=== PATIENT | male | born 1995 | race Caucasian/White ===

== ENCOUNTER → 2016-07-28 | Outpatient (CLI) | payer OTHER ==
[~2016-07-28] MED LIST: ACET325T96 PO; CETI10TA84 PO; FLUT0.15 NAE; OXYC-57 PO
--- NOTE | 2016-07-28 20:28 | DIAGNOSTIC IMAGING REPORT ---
CHEST 2 VIEWS ROUTINE HISTORY: Left-sided chest pain. COMPARISON: Chest 02/25/2015. FINDINGS: Interval development of a lceke-by-zkdnpekz left pneumothorax with a maximal pleural gap of 4 cm. No focal lung consolidations. No mediastinal shift. The heart is normal in size. Suture material within the right lung apex. No right-sided pneumothorax. No pleural effusions. IMPRESSION: Small to moderate left apical pneumothorax with a maximal pleural gap of 4 cm. These findings were called to Dr. Che at 8:42 PM on 07/28/2016. Electronically signed by: John La M.D. 07/28/2016 8:41 PM Dictated Date/Time: 07/28/2016 8:25 PM
== END | disposition home or self-care (01) ==
LOC: C.RAD 20:06
PROVIDERS: ATTEND Internal Medicine Pulmonary Disease
DX: J93.9 Pneumothorax, unspecified (principal)

== ENCOUNTER → 2016-07-29 | Outpatient (CLI) | payer OTHER ==
[~2016-07-29] MED LIST changes: +OPTIRAY 320 IV PRN
--- NOTE | 2016-07-29 13:55 | DIAGNOSTIC IMAGING REPORT ---
CT OF THE CHEST WITH IV CONTRAST CLINICAL HISTORY: Pneumothorax. COMPARISON STUDY: Chest CT May 29, 2014 and chest radiograph July 28, 2016. TECHNIQUE: Following IV administration of 94 mL of Optiray-320, helical axial images of the chest were obtained. Images were viewed in the axial, sagittal and coronal planes. IV contrast was administered without complication. CT DOSE: 259.76 mGycm FINDINGS: A small left pneumothorax is noted. This is likely similar to exam of July 28, 2016. There are postsurgical findings within the right lung apex. There is a suspected 5 mm bleb within the left lung apex shown on axial image 46 of 376. This could account for the pneumothorax. There is no consolidation. The size of the heart is normal. There is no pericardial effusion. Pleural hyperdensities within the right hemithorax could be related to prior pleurodesis. Bony thorax and upper abdomen are unremarkable. IMPRESSION: 1. Small left pneumothorax, similar to chest radiograph of July 28, 2016. Suspected tiny left apical bleb which could account for the spontaneous left pneumothorax. 2. Post surgical findings within the right hemithorax. Electronically signed by: Michael Vasquez M.D. 07/29/2016 1:54 PM Dictated Date/Time: 07/29/2016 1:45 PM
== END | disposition home or self-care (01) ==
LOC: C.CTS 12:59
PROVIDERS: ATTEND Internal Medicine Pulmonary Disease
DX: J93.9 Pneumothorax, unspecified (principal)

== ENCOUNTER → 2016-08-02 | Outpatient (CLI) | payer OTHER ==
[~2016-08-02] MED LIST changes: -OPTIRAY 320 IV PRN
--- NOTE | 2016-08-02 08:19 | DIAGNOSTIC IMAGING REPORT ---
CHEST 2 VIEWS ROUTINE CLINICAL HISTORY: Pneumothorax. Right-sided chest pain. COMPARISON STUDY: 07/28/2016 FINDINGS: Postsurgical changes are present within the right lung apex. There is elevation of the minor fissure. There is interval decrease the size of a left apical pneumothorax which has a pleural separation of 13 mm. No right-sided pneumothorax is visualized. There is no focal pulmonary consolidation. No pleural effusions are visualized.[ IMPRESSION: 1. Decreasing left apical pneumothorax with a pleural separation of 13 mm. 2. Postsurgical changes involve the right hemithorax Electronically signed by: Colby Wagoner M.D. 08/02/2016 8:18 AM Dictated Date/Time: 08/02/2016 8:16 AM
== END | disposition home or self-care (01) ==
LOC: C.RAD 07:40
PROVIDERS: ATTEND Internal Medicine Pulmonary Disease
DX: J93.9 Pneumothorax, unspecified (principal)

== ENCOUNTER → 2016-08-18 | Outpatient (CLI) | payer OTHER ==
[~2016-08-18] MED LIST changes: -ACET325T96 PO
[2016-08-18 11:55] LABS: BASO % 0.5 %; BASO ABS # 0.04 K/uL (0-0.2); COMPLETE YES; EOS % 4.6 %; HEMATOCRIT 43.7 % (42-52); IG% 0.3 %; LYMPH % 31.9 %; LYMPH ABS # 2.41 K/uL (1.2-3.4); MEAN CELL VOLUME 87.4 fL (80-100); MEAN CORPUSCULAR HEMOGLOBIN 30.4 pg (25-34); MEAN CORPUSCULAR HGB CONC 34.8 g/dl (32-36); MEAN PLATELET VOLUME 10.3 fL (7.4-10.4); MONO % 6.7 %; PLATELET COUNT 195 K/uL (130-400); WHITE BLOOD COUNT 7.56 K/uL (4.8-10.8)
[2016-08-18 12:21] LABS: BLOOD UREA NITROGEN 15 mg/dl (7-18); BUN/CREATININE RATIO 17.6 (10-20); CARBON DIOXIDE 31 mmol/L (21-32); CHLORIDE 107 mmol/L (98-107); CREATININE 0.86 mg/dl (0.60-1.40); GLUCOSE 73 mg/dl (70-99); POTASSIUM 3.9 mmol/L (3.5-5.1); SODIUM 143 mmol/L (136-145)
[2016-08-18 12:32] LABS: CALCIUM 9.5 mg/dl (8.5-10.1)
== END | disposition home or self-care (01) ==
LOC: C.LAB1850 10:03
PROVIDERS: ATTEND Surgery
DX: Z01.812 Encounter for preprocedural laboratory examination (principal); J93.9 Pneumothorax, unspecified

== ENCOUNTER 2016-08-26 05:18 | Observation (INO) | payer OTHER ==
[2016-08-26] VITALS (9 sets, daily range): BP systolic 108–128; BP diastolic 65–76; PULSE 70–105; TEMP 36.4–37.3; O2SAT 94–100; Ht 182.9 cm; Wt 67.3 kg
[~2016-08-26] VITALS: Ht 182.9 cm; Wt 67.3 kg
[~2016-08-26 05:18] MED LIST changes: -OXYC-57 PO
[2016-08-26] MEDS ORDERED: LACTATED RINGER'S 1000ML 1,000 ML IV SCH (06:00)
[2016-08-26] MEDS ORDERED: TALC 6 GM/PKT EXT ONE (06:34)
--- NOTE | 2016-08-26 06:37 | History & Physical Bridge Note ---
H&P Re-Evaluation Bridge Note: I have examined the patient, reviewed the History & Physical and in the interval since the performance of the History & Physical I have noted the following changes of clinical significance: No changes noted pt marked family will be here
[2016-08-26] MEDS ORDERED: FENTANYL CITRATE INJ 50 MCG/1 ML 2 ML VIAL ONE ×2 (06:38→08:57)
[2016-08-26] MEDS ORDERED: GLYCOPYRROLATE INJ 0.2 MG/ML VIAL ONE (06:38)
[2016-08-26] MEDS ORDERED: ONDANSETRON INJ 2 MG/ML 2 ML VIAL ONE (06:38)
[2016-08-26] MEDS ORDERED: MIDAZOLAM HCL 1 MG/ML 2ML VIAL ONE ×2 (06:38→06:53)
[2016-08-26] MEDS ORDERED: PROPOFOL IV EMULSION 10 MG/ML 20 ML VIAL IV ONE (06:38)
[2016-08-26] MEDS ORDERED: DEXAMETHASONE SOD INJ 4 MG/ML VIAL ONE (06:38)
[2016-08-26] MEDS ORDERED: ROCURONIUM BROMIDE 10 MG/ML 5 ML VIAL ONE (06:38)
[2016-08-26] MEDS ORDERED: NEOSTIGMINE METHYLSULFATE 5 MG/5 ML SYR ONE (06:38)
[2016-08-26] MEDS ORDERED: LIDOCAINE HCL 2% 2 ML VIAL (20MG/ML) ONE ×2 (06:38→09:06)
[2016-08-26] MEDS ORDERED: CEFAZOLIN SOD 1 GM VIAL ONE (07:39)
[2016-08-26] MEDS ORDERED: BUPIVACAINE 0.5 % 5 MG/1 ML MPF 30ML VIAL ONE (07:54)
--- NOTE | 2016-08-26 08:38 | [facility] Post Operative Brief Note ---
Immediate Operative Summary Operative Date August 26, 2016. Pre-Operative Diagnosis Left pneumothorax Post-Operative Diagnosis Same Procedure(s) Performed Left Video-assisted Thoracoscopy; ; Wedge Resection of Apical Blebs with Mechanical Pleurodesis Surgeon Dr Mills Physicians Assistant Surgeon(s) Luis Fernando Weber PA-C Estimated Blood Loss 10ML Findings localized pale tissue and fibrosis consistent with apical blebs Specimens A. Wedge resection left upper lobe Culture C/S cathed urine sent out at 0747 Drains 28 chest tube
[2016-08-26] MEDS ORDERED: OXYC-57 PO (08:41)
--- NOTE | 2016-08-26 08:42 | Discharge Instructions ---
Discharge Instructions Date of Service August 26, 2016. Admission Reason for Admission: Pneumothorax Discharge Discharge Diagnosis / Problem: left VATS, bleb resction, pleurodesis Discharge Goals Goal(s): Improve disease control Activity Recommendations Activity Limitations: as noted below Shower/Bathe: tomorrow Driving or Machine Use: resume 3 days after discharge (if not taking Percocet) . Instructions / Follow-Up Instructions / Follow-Up Dr. Mills in 1 week, call [phone] for any questions or if you need to schedule an appt Go to the ER if you become short of breath Current Hospital Diet Patient's current hospital diet: Regular Diet Discharge Diet Recommended Diet: Regular Diet Procedures Procedures Performed: Left Video-assisted Thoracoscopy; ; Wedge Resection of Apical Blebs with Mechanical Pleurodesis Pending Studies Studies pending at discharge: no Medical Emergencies . Who to Call and When: Medical Emergencies: If at any time you feel your situation is an emergency, please call 911 immediately. . Non-Emergent Contact Non-Emergency issues call your: Surgeon Call Non-Emergent contact if: you have a fever, temperature is above 101.5, your pain is not controlled, wound has increased drainage, wound has increased redness . "Provider Documentation" section prepared by Luis Fernando Weber. . VTE Core Measure Inpt VTE Proph given/why not?: SCD's
[2016-08-26] MEDS ORDERED: ONDANSETRON INJ 2 MG/ML 2 ML VIAL IV PRN ×2 (08:45→09:00)
[2016-08-26] MEDS ORDERED: PHENYLEPHRINE 100MCG/ML 5ML SYR ONE (08:55)
[2016-08-26] MEDS ORDERED: MEPERIDINE HCL 25 MG/ML CARP IV PRN ×2 (09:00→09:15)
[2016-08-26] MEDS ORDERED: ATROPINE SULFATE 0.1 MG/ML 5ML SYR IV PRN (09:00)
[2016-08-26] MEDS ORDERED: FENTANYL CITRATE INJ 50 MCG/1 ML 2 ML VIAL IV PRN (09:00)
[2016-08-26] MEDS ORDERED: EpHEDrine SULFATE INJ 50 MG/ML AMP IV PRN ×2 (09:00→09:15)
[2016-08-26] MEDS ORDERED: LABETALOL HCL IV 5 MG/ML 20ML IV PRN (09:00)
[2016-08-26] MEDS ORDERED: HYDROmorphone INJ 1 MG/ML SYR IV PRN ×2 (09:00→09:15)
[2016-08-26] MEDS ORDERED: SODIUM CHLORIDE 0.9% INJ 10 ML VIAL ONE (09:06)
[2016-08-26] MEDS ORDERED: SODIUM CHLORIDE 0.9% 1000ML 1,000 ML IV PRN (09:11)
[2016-08-26] MEDS ORDERED: LACTATED RINGER'S 1000ML 500 ML IV PRN (09:11)
--- NOTE | 2016-08-26 09:12 | OPERATIVE REPORT ---
DATE OF OPERATION: 08/26/2016 PREOPERATIVE DIAGNOSES: Left recurrent spontaneous pneumothorax, apical blebs. POSTOPERATIVE DIAGNOSES: Same. PROCEDURES: Wedge resection, left upper lobe via left VATS, mechanical pleurodesis. SURGEON: Dr. Mills. PERINATAL SOCIAL WORKER: Phillip Weber PA-C. SUMMARY: The patient was brought into the operating room theater and epidural anesthesia had been placed at the patient's request. The double lumen endotracheal tube was positioned. The left chest area was prepped after we rotated the patient to the right, roll placed underneath the shoulders and properly padded. We entered the chest cavity after the left lung had been deflated through a small incision at the tip of the scapula, sufficient enough to use preemptive local analgesia in the area. Once we entered the subcutaneous tissue, we were able to enter the intercostal space with a hemostat followed by a 5 mm trocar followed by the scope. Point of entry inspected and no injury identified. The lung was partially deflated, with time it would be completely deflated. At this point, we then placed under direct visualization in the anterior axillary line approximately the fourth intercostal space, another 5 mm trocar with preemptive local analgesic. Then we placed an 11 mm anterior axillary line trocar at approximately the ninth intercostal space supradiaphragmatically under direct visualization. At this point, we placed a camera in the larger port site and elevated the lung which appeared pristine except in the apical area there was an area of pale tissue with some fibrosis consistent probably with the localized area of blebs. Using multiple applications of the Endo JUAQUIN the purple we were able then to resect the apical area. Hemostasis was satisfactory. Having accomplished this, we used the Bovie pad scraper, cut it appropriately and mechanically abraded nursing home up the chest to the apical area. Once this had been completed, we placed the chest tube appropriately in the apical area, making sure we were not into the thoracic inlet. We then placed the scope in the fourth intercostal 5 mm trocar site to visualize the entry site at the initial trocar site that was free of any bleeding. At this point, we also visualized the upper segment of the lower lobe and there was no evidence of any bleb formation in that area. The chest tube was attached to skin edges with 2-0 silk suture and 4-0 Monocryl for the two 5 mm trocar sites and Steri-Strips applied. The procedure was tolerated well by the patient and was taken to recovery in good condition. ADDENDUM: Prior to removing the scope, we had anesthesia inflate the lung and there was no obvious air leak and both lobes reexpanded. I attest to the content of the Intraoperative Record and any orders documented therein. Any exceptio ns are noted below.
[2016-08-26] MEDS ORDERED: NALBUPHINE HCL INJ 10 MG/ML AMP IV PRN (09:15)
[2016-08-26] MEDS ORDERED: KETOROLAC TROMETHAMINE 30 MG/ML VIAL IV. PRN (09:15)
[2016-08-26] MEDS ORDERED: NALOXONE HCL INJ 0.4 MG/1 ML VIAL/CARP IV PRN (09:15)
[2016-08-26] MEDS ORDERED: DiphenhydrAMINE HCL 50 MG/ML VIAL IV PRN (09:15)
[2016-08-26] MEDS ORDERED: FENTANYL 2.5MCG/ML BUPIV 0.0625% 100ML BAG ONE (09:22)
--- NOTE | 2016-08-26 09:41 | DIAGNOSTIC IMAGING REPORT ---
CHEST ONE VIEW PORTABLE HISTORY: left VATS, bleb resection COMPARISON: Chest 08/26/2016. FINDINGS: Left-sided chest tube terminates in the left lung apex. There is a small left apical pneumothorax with a pleural gap of 1.5 cm. Suture material within the lung apices. An epidural catheter is noted. The heart is normal in size. No pleural effusions. IMPRESSION: Small left apical pneumothorax. Left-sided chest tube terminates in the left lung apex. Electronically signed by: John La M.D. 08/26/2016 9:40 AM Dictated Date/Time: 08/26/2016 9:31 AM
[2016-08-26] MEDS ORDERED: IV FLUIDS COMPLETED PRN (10:15)
--- NOTE | 2016-08-26 10:20 | Anesthesiology Progress Note ---
Anesthesia Post Op Note Date & Time August 26, 2016 at 10:17 Vital Signs Pain Intensity: 2 Vital Signs Past 12 Hours Date Time Temp Pulse Resp B/P Pulse Ox O2 Delivery O2 Flow Rate FiO2 08/26/16 10:07 93 15 95 08/26/16 10:07 77 15 08/26/16 10:07 93 15 95 08/26/16 10:07 77 15 08/26/16 10:06 121/70 08/26/16 10:06 121/70 08/26/16 10:02 65 19 100 08/26/16 10:02 65 19 08/26/16 10:02 65 19 08/26/16 10:02 65 19 100 08/26/16 10:01 117/81 08/26/16 10:01 117/81 08/26/16 09:57 83 15 99 08/26/16 09:57 82 15 08/26/16 09:57 83 15 99 08/26/16 09:57 82 15 08/26/16 09:56 124/82 08/26/16 09:56 124/82 08/26/16 09:52 79 17 100 08/26/16 09:52 80 17 08/26/16 09:52 79 17 100 08/26/16 09:52 80 17 08/26/16 09:51 129/80 08/26/16 09:51 129/80 08/26/16 09:47 88 28 08/26/16 09:47 88 28 08/26/16 09:47 89 28 98 08/26/16 09:47 89 28 98 08/26/16 09:46 127/76 08/26/16 09:46 127/76 08/26/16 09:42 74 15 100 08/26/16 09:42 76 15 08/26/16 09:42 74 15 100 08/26/16 09:42 76 15 08/26/16 09:41 130/69 08/26/16 09:38 67 16 100 08/26/16 09:38 64 16 08/26/16 09:36 116/65 08/26/16 09:36 36.1 08/26/16 09:33 90 20 08/26/16 09:33 87 20 100 08/26/16 09:31 117/71 08/26/16 09:28 71 15 08/26/16 09:28 66 15 100 08/26/16 09:27 65 18 100 08/26/16 09:27 67 18 08/26/16 09:26 134/72 08/26/16 09:22 81 15 100 08/26/16 09:22 80 15 08/26/16 09:21 132/68 08/26/16 09:18 92 18 100 08/26/16 09:18 92 18 08/26/16 09:16 129/80 08/26/16 09:13 90 19 100 08/26/16 09:13 91 19 08/26/16 09:12 64 13 100 08/26/16 09:12 62 13 08/26/16 09:11 132/80 08/26/16 09:07 65 16 08/26/16 09:07 61 16 100 08/26/16 09:06 133/76 08/26/16 09:02 69 16 08/26/16 09:02 67 16 100 08/26/16 09:01 132/74 08/26/16 08:57 78 19 08/26/16 08:57 77 19 100 08/26/16 08:56 122/60 08/26/16 08:52 89 15 100 08/26/16 08:52 91 15 08/26/16 08:51 116/64 08/26/16 08:47 98 21 100 08/26/16 08:47 97 21 08/26/16 08:46 103/60 08/26/16 08:43 124/73 08/26/16 08:42 90 100 08/26/16 08:42 90 08/26/16 08:42 36.1 93 16 124/73 100 Mask 10 08/26/16 05:35 37 77 18 125/76 100 Room Air Notes Mental Status: alert / awake / arousable, participated in evaluation Pt Amnestic to Procedure: Yes Nausea / Vomiting: adequately controlled Pain: adequately controlled Airway Patency, RR, SpO2: stable & adequate BP & HR: stable & adequate Hydration State: stable & adequate Anesthetic Complications: no major complications apparent Pt had left VATS under GA without problems. Complained of pain on arrival in PACU; lidocaine 1% 10cc given to thoracic epidural in divided doses with relief.
[2016-08-26] MEDS: LACTATED RINGER'S 1000ML 1,000 ML IV SCH ×2 (11:23→21:06)
[2016-08-26] MEDS: FENTANYL 2.5MCG/ML BUPIV 0.0625% 100ML BAG EPI PRN ×3 (15:13→22:55)
[2016-08-26] MEDS: NO NARCOTICS OR SEDATIVES SCH ×2 (16:00→23:20)
[2016-08-27 07:16] VITALS: BP 118/72; PULSE 80; TEMP 36.9; O2SAT 96
[2016-08-27] MEDS: FENTANYL 2.5MCG/ML BUPIV 0.0625% 100ML BAG EPI PRN (07:18)
--- NOTE | 2016-08-27 07:37 | SURGERY PROGRESS NOTE ---
DATE: 08/27/2016 DATE: 08/27/2016. Luther is 1st postoperative day status left VATS bleb resection and mechanical pleurodesis. He is alert, coherent and in no distress. He is comfortable with the epidural. Intraoperative findings were discussed with the patient. He has no forced expiratory leak. The chest tube was placed on suction. At this point we will discontinue epidural, discontinue the Ames, discontinue oxygen, increase activity. Will check the chest x-ray from this morning, but I suspect he will be able to go home later today if he is comfortable. ADDENDUM: His last vitals showed a temperature of 37.3, pulse 105, respirations 16, blood pressure 128/65, O2 sats 95 on 2 liters. I\T\O, he had 550 out. Chest tube drainage was minimal. MTDD
[2016-08-27] MEDS: NO NARCOTICS OR SEDATIVES SCH (08:00)
[2016-08-27 08:02] LABS: BASO % 0.1 %; BASO ABS # 0.01 K/uL (0-0.2); COMPLETE YES; EOS % 0.1 %; HEMATOCRIT 38.4 % (42-52); IG% 0.2 %; LYMPH % 15.6 %; LYMPH ABS # 2.28 K/uL (1.2-3.4); MEAN CELL VOLUME 87.1 fL (80-100); MEAN CORPUSCULAR HEMOGLOBIN 30.6 pg (25-34); MEAN CORPUSCULAR HGB CONC 35.2 g/dl (32-36); MEAN PLATELET VOLUME 9.8 fL (7.4-10.4); PLATELET COUNT 185 K/uL (130-400); RED BLOOD COUNT 4.41 M/uL (4.7-6.1); WHITE BLOOD COUNT 14.65 K/uL (4.8-10.8)
--- NOTE | 2016-08-27 08:23 | Anesthesiology Progress Note ---
Anesthesia Post Op Note Date & Time August 27, 2016 at 08:22 Vital Signs Pain Intensity: 0.0 Vital Signs Past 12 Hours Date Time Temp Pulse Resp B/P Pulse Ox O2 Delivery O2 Flow Rate FiO2 08/27/16 07:16 36.9 80 16 118/72 96 Nasal Cannula 2.0 08/26/16 23:20 Nasal Cannula 2.0 08/26/16 23:20 37.3 105 16 128/65 95 Nasal Cannula 2.0 Notes Mental Status: alert / awake / arousable, participated in evaluation Pt Amnestic to Procedure: Yes Nausea / Vomiting: adequately controlled Pain: adequately controlled Airway Patency, RR, SpO2: stable & adequate BP & HR: stable & adequate Hydration State: stable & adequate Neuraxial Anesthesia: was administered, sensory block resolved Anesthetic Complications: no major complications apparent
[2016-08-27 08:33] LABS: CREATININE 0.93 mg/dl (0.60-1.40); POTASSIUM 3.8 mmol/L (3.5-5.1)
[2016-08-27 08:53] LABS: CALCIUM 8.6 mg/dl (8.5-10.1)
--- NOTE | 2016-08-27 08:55 | DIAGNOSTIC IMAGING REPORT ---
CHEST ONE VIEW PORTABLE CLINICAL HISTORY: left VATS, bleb resection postoperative resection COMPARISON STUDY: 08/26/2016 FINDINGS: Left-sided chest tube unchanged in position. Mild increase in volume of a left apical pneumothorax. Maximum pleural separation has increased from 1.5 to 3.1 cm. Right lung is clear. An epidural catheter is present. IMPRESSION: Mild increase of a small left apical pneumothorax. Maximum pleural separation has increased to 3.1 cm. Electronically signed by: Yaya Recio M.D. 08/27/2016 8:54 AM Dictated Date/Time: 08/27/2016 8:53 AM
[2016-08-27] MEDS: OXYCODONE/ACETAMINOPHEN 5-325 TAB PO PRN ×2 (09:57→11:43)
--- NOTE | 2016-08-27 11:18 | Anesthesia Procedure Note ---
Anesthesia Epidural Removal Nt Date & Time August 27, 2016 at 11:18 Vital Signs Pain Intensity: 4.0 Vital Signs Past 12 Hours Date Time Temp Pulse Resp B/P Pulse Ox O2 Delivery O2 Flow Rate FiO2 08/27/16 07:25 Room Air 08/27/16 07:16 36.9 80 16 118/72 96 Nasal Cannula 2.0 08/26/16 23:20 Nasal Cannula 2.0 08/26/16 23:20 37.3 105 16 128/65 95 Nasal Cannula 2.0 Notes Mental Status: alert / awake / arousable, participated in evaluation Nausea / Vomiting: adequately controlled Pain: adequately controlled Airway Patency, RR, SpO2: stable & adequate BP & HR: stable & adequate Hydration State: stable & adequate Neuraxial Anesthesia: was administered, sensory block is resolving Anesthetic Complications: no major complications apparent, pt satisfied with anesthetic care Epidural: removed without complications, with tip intact
[2016-08-27] MEDS ORDERED: OXYCODONE/ACETAMINOPHEN 5-325 TAB PO PRN (11:30)
[2016-08-27] MEDS ORDERED: NURSING VERBAL MED ORDER ONE (11:45)
[2016-08-27 12:01] VITALS: BP 120/68; PULSE 80; TEMP 36.7; O2SAT 97
--- NOTE | 2016-08-27 14:17 | Progress Note ---
Progress Note Date of Service August 27, 2016. Progress Note chest tube drainage minimal, no air leak CXR with apical space at line of resection, some increase expected since taken off suction prior to XR chest tube was removed tolerating po analgesics ok for d/c home if not SOB and after observation for removal of epidural
[2016-08-27 14:38] VITALS: BP 120/68; PULSE 80; TEMP 36.7; O2SAT 97
[2016-08-27 15:21] VITALS: BP 99/61; PULSE 104; TEMP 36.8; O2SAT 97
--- NOTE | 2016-08-28 06:01 | DISCHARGE SUMMARY ---
PRIMARY DISCHARGE DIAGNOSES: Left recurrent spontaneous pneumothorax and apical blebs. PROCEDURE PERFORMED: Left VATS with wedge resection of left upper lobe and mechanical pleurodesis. HOSPITAL COURSE: The patient is a 20-year-old male with recurrent left pneumothoraces, now admitted through same day and taken to the operating room for left VATS, bleb resection and pleurodesis. The procedure was well tolerated. An epidural had been placed for postoperative analgesia. He was transferred to the surgical floor and did well overnight. Ames catheter and epidural were discontinued on postoperative day 1. Chest x-ray showed a small apical space problem at the line of resection. He did not have an air leak. His pain was managed with oral analgesics in the afternoon of postoperative day #1. The chest tube was removed and occlusive dressing was applied. There has been minimal chest tube drainage. After being observed once the epidural was removed, he was stable for discharge home in the evening of postoperative day 1. DISCHARGE INSTRUCTIONS: Discharge home. Follow up with Dr. Mills in 1 week. DISCHARGE MEDICATIONS: Percocet 1-2 tablets every 4 hours as needed. Resume home Zyrtec 10 mg as needed and Flonase nasal spray as needed daily.
== END 2016-08-27 17:15 | disposition home or self-care (01) ==
LOC: ENRESERVTM → ENRESERVDT → C.ACU 05:18 → C.MSN 08:38
PROVIDERS: ADMIT Surgery; ATTEND Surgery
DX: J93.83 Other pneumothorax (principal); R23.8 Other skin changes

== ENCOUNTER → 2017-04-08 | Outpatient (CLI) | payer OTHER ==
--- NOTE | 2017-04-08 13:55 | DIAGNOSTIC IMAGING REPORT ---
CHEST 2 VIEWS ROUTINE HISTORY: 21 years-old Male R07.89 Chest [id number] History of [id number] follow-up study in a patient with history of prior pneumothorax. Acute chest discomfort. COMPARISON: Chest radiograph 08/27/2016 TECHNIQUE: PA and lateral views of the chest FINDINGS: Cardiomediastinal and hilar silhouettes are within normal limits. Surgical suture material projects over the bilateral lung apices suggesting prior bleb resection. There is no pneumothorax, pleural effusion or focal airspace consolidation. No overt pulmonary edema. The bones of the chest appear grossly intact. IMPRESSION: 1. No acute process. 2. Postsurgical changes of the bilateral lung apices without pneumothorax. The above report was generated using voice recognition software. It may contain grammatical, syntax or spelling errors. Electronically signed by: Bhargav Choi M.D. 04/08/2017 1:54 PM Dictated Date/Time: 04/08/2017 1:52 PM
== END | disposition home or self-care (01) ==
LOC: C.RAD1850 13:45
PROVIDERS: ATTEND Internal Medicine Pulmonary Disease
DX: R07.89 Other chest pain (principal); Z87.09 Personal history of other diseases of the respiratory system